=== PATIENT | male | born 1965 | race African-American/Black ===

== ENCOUNTER 2016-12-12 14:29 | Observation (INO) | payer BC ==
[~2016-12-12] VITALS: Ht 177.8 cm; Wt 83.0 kg
[2016-12-12 17:23] LABS: PLATELET COUNT 326 K/uL (142-355)
[2016-12-12 17:25] VITALS: BP 152/98; TEMP 97.9; Ht 177.8 cm; Wt 83.0 kg
[2016-12-12 17:46] LABS: POTASSIUM 3.4 mmol/L (3.6-5.2); SODIUM 137 mmol/L (136-145)
[2016-12-12 17:47] LABS: PARTIAL THROMBOPLASTIN TIME 22.4 SECONDS (24.5-33.6)
[2016-12-12 20:00] VITALS: BP 144/83; TEMP 98.3
[2016-12-13 00:14] VITALS: BP 102/61; TEMP 98
[2016-12-13 04:00] VITALS: BP 110/63; TEMP 98
[2016-12-13 08:02] VITALS: BP 107/68; TEMP 98.2
[2016-12-13 08:07] LABS: PLATELET COUNT 298 K/uL (142-355)
[2016-12-13 08:44] LABS: POTASSIUM 3.5 mmol/L (3.6-5.2); SODIUM 137 mmol/L (136-145)
[2016-12-13 12:00] VITALS: BP 128/78; TEMP 98.1
== END 2016-12-13 12:40 | disposition home or self-care (01) ==
LOC: MED/SURG 14:29
PROVIDERS: Internal Medicine; ADMIT Internal Medicine
DX: R07.89 Other chest pain (principal)
CPT/HCPCS: 36415; 36591; 80053; 82550; 83735; 84484; 85027; 85379; 85610; 85730; 93005; 94760; 96372; 99220; G0378; G0379; J1650